=== PATIENT | male | born 1965 | race Caucasian/White ===

== ENCOUNTER 2017-02-11 14:26 | Inpatient (IN) | payer MEDICAID ==
[~2017-02-11] VITALS: Ht 175.3 cm; Wt 81.6 kg
--- NOTE | ~2017-02-11 | DS ---
Unit #: [id number] #: [id number] Patient: AGUILAR DIEHL JR [id number] [place] [address] [id number] I MR#: [id number] NAME: AGUILAR DIEHL JR ROOM: P212 Age: 51 Sex: M Admission Date: 02/11/2017 : 1965 Discharge Date: 02/14/2017 Attending Physician: Josué Meyer M.D. Primary Care Physician: Primary Care Physician No DISCHARGE SUMMARY REASON FOR ADMISSION The patient is a 51-year-old , white male, admitted to the [address] [place] [address] for alcohol abuse and depression. HOSPITAL COURSE The patient was admitted to the [address] [place] [address] unit and placed on suicide precautions. He was restarted on Remeron 15 mg at bedtime to address depressive symptoms. His detox was an uneventful one and his stay in the hospital was a fairly brief one. By 02/14/2017, the patient requested discharge. At that time, he declined a referral to intensive outpatient programming stating that he would follow up with community mental health resources. Discharge was ordered. FINAL DIAGNOSES Dysthymic disorder; alcohol use disorder. DISPOSITION ON DISCHARGE The patient is discharged on the following medications: Remeron 15 mg at bedtime for depression. DISCHARGE INSTRUCTIONS No dietary or physical restrictions were placed upon the patient at the time of discharge. FOLLOWUP Followup will take place through the auspices of community mental health resources. PROGNOSIS The patient's prognosis is considered fair. Dictated by... Josué Meyer M.D. CB/levy TD: 02/16/2017 12:09 JOB #: [id number] Unit #: [id number] #: [id number] Patient: AGUILAR DIEHL JR DISCHARGE SUMMARY Page 1 of 1 X Josué Meyer MD X DISCHARGE SUMMARY
--- NOTE | ~2017-02-11 | HP ---
Unit #: [id number] #: [id number] Patient: TOMMY DIEHL JR [id number] [place] [address] [id number] MR#: [id number] NAME: TOMMY DIEHL JR ROOM: P212 Age: 51 Sex: M Admission Date: 02/11/2017 : 1965 Attending Physician: Josué Meyer M.D. Admitting Physician: Josué Meyer M.D. Primary Care Physician: Primary Care Physician No HISTORY AND PHYSICAL HISTORY OF PRESENT ILLNESS Tommy is a 51 year old admitted to [address] [place] [address] because of his continued abuse of alcohol. PAST MEDICAL HISTORY 1. Long history of alcohol abuse. 2. History of withdrawal seizures. 3. High blood pressure. 4. COPD. PAST SURGICAL HISTORY Nothing reported. ALLERGIES No known drug allergies. SOCIAL HISTORY Smokes 1-1/2 packs per day. Drinks at least 18 beers on a daily basis. Admits to a history of illicit drug use to include smoking methamphetamine. FAMILY HISTORY Medically noncontributory. REVIEW OF SYSTEMS CONSTITUTIONAL: No fever or chills. HEENT: Denies any sore throat, ear pain or runny nose. CARDIOVASCULAR: Denies chest pain, irregular heart rhythm or palpitations. CHEST: Denies shortness of breath or cough. No hemoptysis. GASTROINTESTINAL: Denies nausea, vomiting, diarrhea or chronic constipation. ENDOCRINE: Denies history of increased thirst or urination. No recent significant weight loss or gain. GENITOURINARY: Denies dysuria, frequency, or hematuria. SKIN: Denies any rashes. HEMATOLOGIC: Denies history of increased bleeding or bruising. MUSCULOSKELETAL: Denies any hot, swollen joints. No generalized muscle pain. NEUROLOGIC: Denies problems with vision or speech. No frequent, severe headaches. No numbness, tingling or weakness in any extremities. Denies loss of bladder or bowel control. CURRENT MEDICATIONS 1. Detox protocol. Unit #: [id number] #: [id number] Patient: TOMMY DIEHL JR 2. Remeron 15 mg q.h.s. PHYSICAL EXAMINATION GENERAL: Alert, well-nourished, in no apparent distress. VITAL SIGNS: Blood pressure 156/94, heart rate 74, respirations 16, temperature 98.6. WEIGHT: 180. HEIGHT: 5 feet 9 inches. SKIN: Warm and dry without rash or lesion. HEENT: Normocephalic. TMs not viewed. Oral and nasal passages clear. Conjunctivae clear. PERRLA. EOMs intact. NECK: Supple without lymphadenopathy or thyromegaly. HEART: Regular rate and rhythm without murmur. LUNGS: Clear. ABDOMEN: Soft, nontender. : Not done. EXTREMITIES: No evidence of cyanosis, clubbing or edema. Moves all without focal deficit. NEUROLOGICAL: Grossly within normal limits. Cranial Nerves: II: Visual trimble are intact. III, IV AND : Extraocular movements are intact. Pupils are equal, round and reactive to light. V: Facial sensation is grossly normal. VII: Facial movements and expression are normal. VIII: Auditory acuity grossly intact. IX, X: Uvula is midline. Phonation is normal. XI: Patient shrugs shoulders and turns head normally. XII: Tongue protrudes in the midline. Sensory and Motor Function: Sensory and motor sensation is grossly normal. Motor: moves all extremities well. Coordination: Gait is normal. Deep Tendon Reflexes: Intact. IMPRESSION 1. Psychiatric admission. 2. High blood pressure, not controlled on admission. He is detoxing but he is admitted on no blood pressure medications with a history of high blood pressure. RECOMMENDATIONS PSYCHIATRIC: Per psychiatrist. MEDICAL: 1. See no contraindication to participate in facility's activities. 2. Continue to monitor blood pressure. If remains high will need to address. MEDICAL PROGNOSIS Good. MEDICAL CONDITION Stable. Dictated by... Mckayla De La TorreARafia. for Temo Garcia/[facility] Unit #: [id number] #: [id number] Patient: TOMMY DIEHL JR TD: 02/12/2017 15:37 JOB #: [id number] HISTORY AND PHYSICAL Page 1 of 1 X Hilda Bello X HISTORY AND PHYSICAL
--- NOTE | ~2017-02-11 | PA ---
Unit #: [id number] #: [id number] Patient: AGUILAR DIEHL JR [id number] [place] [address] [id number] MR#: [id number] NAME: AGUILAR DIEHL JR ROOM: P212 Age: 51 Sex: M Admission Date: 02/11/2017 : 1965 Date of Assessment: 02/12/2017 Attending Physician: Josué Meyer M.D. Admitting Physician: Josué Meyer M.D. Primary Care Physician: Primary Care Physician No PSYCHIATRIC ASSESSMENT IDENTIFYING INFORMATION The patient is a 51-year-old male admitted to the [facility] Unit with increasing abuse of alcohol and depressed mood. CHIEF COMPLAINT Depression and suicidal. INFORMANT(S) Patient, reliability is fair. HISTORY OF PRESENT ILLNESS The patient is a 51-year-old white male last discharged from this facility in late May of 2016. At that time, he was treated for methamphetamine and alcohol use and was started on Remeron. The patient reports that he has no recollection of having filled the prescription for Remeron and did not comply with this medication. No prescribed followup after his discharge. The patient continues to complain of depressed mood. He is currently unemployed and living with his mother and sister. He is drinking 12 to 18 beers on a daily basis. He denies current abuse of methamphetamine though this was an issue in the past. He continues to endorse positive suicidal ideation during today's interview. For more complete history of present illness, please refer to previously dictated notes. PAST PSYCHIATRIC HISTORY Reviewed, no changes. PAST MEDICAL HISTORY Reviewed, no changes. FAMILY HISTORY Reviewed, no changes. SOCIAL HISTORY Reviewed, no changes. MEDICATION HISTORY The patient is currently on no prescribed psychotropic or other medications. ALLERGIES None reported. Unit #: [id number] #: [id number] Patient: AGUILAR DIEHL JR FAMILY HISTORY Noncontributory. MENTAL STATUS EXAMINATION Examination at this time reveals the patient to be a well-developed well-nourished white male appearing stated age. She is in no apparent physical distress at the time of examination. He is awake, alert, and oriented in all spheres. His mood is dysphoric, his affect blunted. Speech is generally well-coherent. There are no gross deficits in memory or cognition noted. Intelligence is judged to be in the average range based on fund of knowledge. The patient is cooperative throughout the interview. He is currently endorsing positive suicidal ideation with a plan to hang himself. He denies homicidal ideation. He denies any psychotic symptoms. His judgment and insight appear to be reasonably intact. No signs of substance withdrawal at this point in evidence. ASSETS AND LIABILITIES The patient's assets are to be assessed. Liabilities: Lack of resources. DIAGNOSTIC IMPRESSION 1. Alcohol use disorder. 2. Dysthymic disorder. 3. Methamphetamine use disorder by history. TREATMENT PLAN The patient remains hospitalized for safety and stabilization. Routine detoxification protocol for alcohol has been initiated. I will restart Remeron 15 mg. Reminded the patient of the importance of outpatient compliance with medication. ESTIMATED LENGTH OF STAY 3 to 5 days. Followup will take place through the auspices of community mental health resources. Dictated by... Josué Meyer M.D. JOSE/markel TD: 02/12/2017 13:09 JOB #: [id number] PSYCHIATRIC ASSESSMENT Page 1 of 1 X Josué Meyer MD X PSYCHIATRIC ASSESSMENT
--- NOTE | ~2017-02-11 | PN ---
Unit #: [id number] #: [id number] Patient: AGUILAR DIEHL JR [id number] [facility] [address] [place] [address] [id number] I MR#: [id number] NAME: AGUILAR DIEHL JR ROOM: P212 Age: 51 Sex: M Admission Date: 02/11/2017 : 1965 Attending Physician: Josué Meyer M.D. Admitting Physician: Josué Meyer M.D. Primary Care Physician: Primary Care Physician Kate MARSH NOTES DATE 02/13/2017 DISCUSSION The patient is active within the therapeutic milieu. He has tolerated reinitiation of Remeron and exhibits little in the way of signs or symptoms of withdrawal. He is expressing interest in residential chemical dependence treatment and has discussed this with his social worker psychiatric. Dictated by... Josué Meyer M.D. CB/markel TD: 02/13/2017 14:46 JOB #: [id number] JOAN MARSH NOTES Page 1 of 1 X Josué Myeer MD PROGRESS NOTE
[~2017-02-11 14:26] MED LIST: AMITRIPTYLINE100 MG PO; CLEOCIN HCL300 M1 PO; INDOMETHACIN25 MG PO; TYLENOL #3 PO; ZOLOFT100 MG PO
[2017-02-12 12:37] LABS: URINE APPEARANCE CLEAR; URINE BILIRUBIN NEG (NEG); URINE BLOOD NEG (NEG); URINE COLOR DK YELLOW; URINE GLUCOSE NEG (NEG); URINE KETONE NEG (NEG); URINE LEUKOCYTE ESTERASE NEG (NEG); URINE NITRATE NEG (NEG); URINE PROTEIN NEG (NEG); URINE SPECIFIC GRAVITY 1.017 (1.003-1.035); URINE UROBILINOGEN 0.2 MG/DL (NEG)
[2017-02-12 12:48] LABS: AMPHETAMINE NEG (NEG); BARBITURATES NEG (NEG); BENZODIAZEPINES POS (NEG); COCAINE NEG (NEG); MARIJUANA NEG (NEG); OPIATES NEG (NEG); TRICYCLIC ANTIDEPRESSANTS NEG (NEG); U METHADONE NEG (NEG)
[2017-02-13 09:39] LABS: BASOPHIL# 0.1 X10e3 (0-0.3); BASOPHIL% 1.1 % (0-2.5); EOSINOPHIL# 0.3 X10e3 (0-0.7); EOSINOPHIL% 3.7 % (0.0-7.0); HEMATOCRIT 47.2 % (38.0-50.0); HEMOGLOBIN 15.8 gm/dL (13.0-16.0); LYMPHOCYTE# 3.1 X10e3 (1.0-3.5); LYMPHOCYTE% 42.3 % (17.0-45.0); MEAN CELL VOLUME 92.8 FL (83-96); MEAN CORPUSCULAR HEMOGLOBIN 31.1 PG (28-34); MEAN CORPUSCULAR HGB CONC 33.6 g/dL (30-36); MEAN PLATELET VOLUME 8.6 FL (6.5-11.5); MONOCYTE# 0.8 X10e3 (0-1.0); MONOCYTE% 10.7 % (3.0-12.0); NEUTROPHIL# 3.1 X10e3 (1.5-7.1); NEUTROPHIL% 42.2 % (40-75); PLATELET COUNT 231 X10e3 (140-420); RED BLOOD COUNT 5.08 X10e (3.90-5.60); RED CELL DISTRIBUTION WIDTH 12.8 % (11.0-15.5); WHITE BLOOD COUNT 7.4 X10e3 (4.0-10.5)
[2017-02-13 09:40] LABS: DIFF IND NO
[2017-02-13 09:50] LABS: ALBUMIN SERUM 4.2 g/dL (3.5-5.0); BILIRUBIN,TOTAL 0.8 mg/dL (0.2-2.0); BUN/CREATININE RATIO 17.14; CALCIUM SERUM 9.6 mg/dL (8.4-10.2); CREATININE SERUM 0.7 mg/dL (0.6-1.4); GLOM FILT RATE Estimated 110.9 mL/min (>60); POTASSIUM 4.7 mmol/L (3.5-5.1); PROTEIN TOTAL SERUM 6.9 g/dL (6.0-8.3)
== END 2017-02-14 15:50 | disposition home or self-care (01) | DRG 897 ==
LOC: P2S 16:25
PROVIDERS: Specialist
PROC: HZ2ZZZZ Detoxification Services for Substance Abuse Treatment (ICD-10-PCS; principal; 2017-02-12)
DX: F10.10 Alcohol abuse, uncomplicated (principal); I10 Essential (primary) hypertension; F34.1 Dysthymic disorder; J44.9 Chronic obstructive pulmonary disease, unspecified; F17.210 Nicotine dependence, cigarettes, uncomplicated
CPT/HCPCS: 80053; 80307; 81003; 85025; 86592